=== PATIENT | female | born 1945 | race Caucasian/White ===

== ENCOUNTER → 2016-11-08 | Outpatient (CLI) | payer MEDICARE, BC ==
[~2016-11-08] MED LIST: ALENDRONATE SOD10 M1 PO; CALCIUM + D 6001 TA1 PO; CARDI-OMEGA1000 MG PO; FEMARA2.5 MG PO; FOSAMAX10 MG PO; GAS-X80 MG PO; IBUPROFEN200 M1 PO; LOW DOSE ASPIRI81 MG PO; MULTIVITAMIN FO1 CAP PO; SIMVASTATIN10 MG PO; TYLENOL 500MG500 MG PO; VITAMIN C BUFF500 MG PO; VITAMIN C500 MG PO; VITAMIN D1000 IU PO; VITAMIN D50000 I1 PO; [UNRECOGNIZED DRUG - OTHER] PO
== END ==
LOC: MC.RAD 15:32
DX: Z12.31 Encounter for screening mammogram for malignant neoplasm of breast (principal)

== ENCOUNTER → 2017-11-11 | Outpatient (CLI) | payer MEDICARE, BC | LOC: MC.RAD 13:36 | DX: Z12.31 Encounter for screening mammogram for malignant neoplasm of breast (principal); Z85.3 Personal history of malignant neoplasm of breast; Z90.12 Acquired absence of left breast and nipple ==

== ENCOUNTER 2018-06-12 06:40 | Emergency (ER) | payer MEDICARE, BC ==
[~2018-06-12] VITALS: Ht 157.5 cm; Wt 54.5 kg
[2018-06-12 06:41] VITALS: TEMP 97.6
[2018-06-12] MEDS ORDERED: NORCO 325 MG-51 TAB PO (06:48)
[2018-06-12] MEDS ORDERED: FLEXERIL 1010 MG/TAB PO (06:49)
[2018-06-12] MEDS ORDERED: XALATAN EYE DROPS OD (06:52)
[2018-06-12 07:19] LABS: BASO # 0.1 (0.0-0.2); BASO % 0.5 % (0.0-2.0); EOS # 0.1 (0.0-0.7); EOS % 1.4 % (0-4.0); GRAN # 6.8 (1.4-6.5); GRAN % 74.2 % (42.2-75.2); HEMATOCRIT 39.4 % (37.0-47.0); LYMPH # 1.6 (1.2-3.4); LYMPH % 17.7 % (20.0-51.0); MEAN CELL VOLUME 89 fl (80.0-100.0); MEAN CORPUSCULAR HEMOGLOBIN 30 pg (27.0-31.0); MEAN CORPUSCULAR HGB CONC 33 g/dl (33.0-37.0); MEAN PLATELET VOLUME 9.9 fl (7.4-10.4); MONO # 0.6 (0.1-0.6); PLATELET COUNT 245 K/mm3 (130-400); RED BLOOD COUNT 4.41 M/mm3 (4.10-5.30); REDCELL DISTRIBUTION WIDTH-CV 13.8 % (11.5-14.5)
[2018-06-12 07:33] LABS: ALANINE AMINOTRANSFERASE 37 U/L (9-52); ALBUMIN 4.5 gm/dL (3.5-5.0); ALKALINE PHOSPHATASE 55 U/L (50-136); ANION GAP 7 mmol/L (7-16); AST,SGOT 35 U/L (15-37); BILIRUBIN,TOTAL 0.6 mg/dL (0.0-1.0); BLOOD UREA NITROGEN 15 mg/dL (7-17); CALCIUM 9.9 mg/dL (8.4-10.2); CARBON DIOXIDE 27 mmol/L (22-30); CHLORIDE 102 mmol/L (98-107); CREATININE, serum 0.77 mg/dL (0.52-1.25); GLUCOSE 108 mg/dL (74-106); LIPASE 85 U/L (23-300); POTASSIUM 4.3 mmol/L (3.4-5.0); SODIUM 136 mmol/L (137-145); TOTAL PROTEIN 7.9 gm/dL (6.4-8.2)
[2018-06-12 07:35] LABS: C-REACTIVE PROTEIN < 0.5 mg/dL (0.0-0.9)
[2018-06-12 08:15] LABS: COLLECTION METHOD CLEAN CATCH
[2018-06-12 08:21] LABS: MUCOUS Present /lpf; PH 7 (5-8); SQUAMOUS EPITHELIAL None Seen /hpf; URINE APPEARANCE Clear; URINE BACTERIA None Seen /hpf; URINE BILIRUBIN Negative (NEGATIVE); URINE BLOOD Negative (NEGATIVE); URINE COLOR Yellow; URINE GLUCOSE Negative (NEGATIVE); URINE KETONE Trace (NEGATIVE); URINE LEUKOCYTE ESTERASE Negative (NEGATIVE); URINE NITRATE Negative (NEGATIVE); URINE PROTEIN(semi-quant) Negative (NEGATIVE); URINE RBC 0-2 /hpf; URINE UROBILINOGEN Negative (NEGATIVE)
[2018-06-12] MEDS ORDERED: NORCO 325 MG-7.1 TAB PO (10:34)
[2018-06-12 11:10] VITALS: BP 122/85; PULSE 77
== END 2018-06-12 11:11 | disposition home or self-care (01) ==
LOC: COL.ER 06:40
PROVIDERS: Emergency Medicine
DX: M54.9 Dorsalgia, unspecified (principal); R19.00 Intra-abdominal and pelvic swelling, mass and lump, unspecified site; Z79.82 Long term (current) use of aspirin; Z79.899 Other long term (current) drug therapy
CPT/HCPCS: J3010; J7040; Q9967

== ENCOUNTER 2018-08-22 07:44 | Day surgery (SDC) | payer MEDICARE, BC ==
[~2018-08-22] VITALS: Ht 157.5 cm; Wt 50.9 kg
[~2018-08-22 07:44] MED LIST changes: +FLEXERIL 1010 MG/TAB PO; +NORCO 325 MG-51 TAB PO; +NORCO 325 MG-7.1 TAB PO; +XALATAN EYE DROPS OD
[2018-08-22 08:17] VITALS: BP 116/87; PULSE 85; TEMP 97.3
[2018-08-22] MEDS ORDERED: NORCO 325 MG-7.1 TAB PO (08:56)
[2018-08-22] MEDS ORDERED: OMEGA-31 SGL PO (08:59)
[2018-08-22] MEDS ORDERED: BENADRYL25 M2 PO (09:01)
[2018-08-22] MEDS ORDERED: ADVIL200 MG PO (09:01)
[2018-08-22 10:05] VITALS: BP 136/45; PULSE 84; TEMP 97.7
--- NOTE | 2018-08-22 10:05 | NUR ---
Patient arrives from OR to [place] [facility] via cart. Alert and oriented x 3. Dressing at port site is clean dry and intact. Denies pain at this time. Water given and chocolate pudding.
[2018-08-22 10:20] VITALS: BP 107/69; PULSE 78
--- NOTE | 2018-08-22 10:20 | NUR ---
patient continues to be free from pain, finished eating and drinking. dressing remains clean dry and intact. call light within reach. post op VS continue.
[2018-08-22 10:35] VITALS: BP 109/65; PULSE 76
--- NOTE | 2018-08-22 10:35 | NUR ---
patient's dressing remains clean, dry and intact, VS continue.
[2018-08-22 10:50] VITALS: BP 109/73; PULSE 74; TEMP 97.2
--- NOTE | 2018-08-22 11:14 | NUR ---
Patient given discharge instructions, verbalized understanding. Patient was given port card and info sheet, verbalized understanding. Patient ambulated to elevator with steady gait, friend and this nurse at her side.
== END 2018-08-22 11:14 | disposition home or self-care (01) ==
LOC: SDCO 07:44
DX: C57.01 Malignant neoplasm of right fallopian tube (principal); Z79.899 Other long term (current) drug therapy; Z79.82 Long term (current) use of aspirin; Z85.3 Personal history of malignant neoplasm of breast; Z85.41 Personal history of malignant neoplasm of cervix uteri; Z85.43 Personal history of malignant neoplasm of ovary; M81.0 Age-related osteoporosis without current pathological fracture; H40.9 Unspecified glaucoma; Z80.42 Family history of malignant neoplasm of prostate; F17.210 Nicotine dependence, cigarettes, uncomplicated; M51.36 Other intervertebral disc degeneration, lumbar region; F41.9 Anxiety disorder, unspecified
CPT/HCPCS: C1788; J2405; J2704; J3010

== ENCOUNTER 2019-02-17 05:49 | Day surgery (SDC) | payer MEDICARE, BC ==
[~2019-02-17] VITALS: Ht 154.9 cm; Wt 49.9 kg
[2019-02-17] VITALS (7 sets, daily range): BP systolic 100–127; BP diastolic 69–90; PULSE 68–80; TEMP 97.2–98
[~2019-02-17 05:49] MED LIST changes: +ADVIL200 MG PO; +BENADRYL25 M2 PO; +OMEGA-31 SGL PO
--- NOTE | 2019-02-17 11:43 | NUR ---
PT BACK FROM OR, VSS, AFEBRILE, DRESSING DRY TO RIGHT ABD AND INTACT. PT DENIES PAIN AND NAUSEA. A/OX3. FRIEND, ADOLFO AT BEDSIDE. WILL MONITOR PROGRESSION. ARIEL
--- NOTE | 2019-02-17 11:48 | NUR ---
PT UP TO THE BATHROOM, TOLERATED ACTIVITY WELL. A/OX3. DENIES PAIN AND NAUSEA. STATES, 'FEEL BELCHY', 'TIGHT ABDOMEN'. ATE CHOCOLATE PUDDING AND DRANK DIET PEPSI. WILL CONT TO MONITOR. ARIEL
--- NOTE | 2019-02-17 11:53 | NUR ---
PT UP TO THE BATHROOM WITH ASSISSTANCE FROM HER FRIEND, ADOLFO. TOLERATED ACTIVITY WELL. DENIES PAIN, NAUSEA. ABD SURGICAL DRESSING REMAINS DRY AND INTACT. IV FLUIDS DISCONTINUED. WILL CONT TO MONITOR PROGRESS. ARIEL
--- NOTE | 2019-02-17 11:57 | NUR ---
PT A/OX3, VSS, DRESSING OVER SURGICAL SITE DRY AND INTACT. DENIES PAIN OR NAUSEA. AMBULATES SLOWLY WITHOUT DIFFICULTY. IV DC'D TO RIGHT WRIST.PT TOLERATED WELL. NO REDNESS, SWELLING, DRAINAGE NOTED. POST-OP INSTRUCTIONS GIVEN AND PT VOICES UNDERSTANDING. PT TAKEN TO FRIEND, ADOLFO'S VEHICLE AND DISCHARGED VIA WC.ARIEL
== END 2019-02-17 11:10 | disposition home or self-care (01) ==
LOC: SDCO 05:49
DX: K43.9 Ventral hernia without obstruction or gangrene (principal); J44.9 Chronic obstructive pulmonary disease, unspecified; F17.210 Nicotine dependence, cigarettes, uncomplicated; G89.29 Other chronic pain; M54.30 Sciatica, unspecified side; M19.90 Unspecified osteoarthritis, unspecified site; F41.9 Anxiety disorder, unspecified; Z90.710 Acquired absence of both cervix and uterus; Z90.10 Acquired absence of unspecified breast and nipple; Z90.49 Acquired absence of other specified parts of digestive tract; Z79.82 Long term (current) use of aspirin; Z88.8 Allergy status to other drugs, medicaments and biological substances; Z88.1 Allergy status to other antibiotic agents; Z91.048 Other nonmedicinal substance allergy status; Z85.3 Personal history of malignant neoplasm of breast; Z85.43 Personal history of malignant neoplasm of ovary; Z85.41 Personal history of malignant neoplasm of cervix uteri; Z92.21 Personal history of antineoplastic chemotherapy; Z80.42 Family history of malignant neoplasm of prostate
CPT/HCPCS: J0690; J1100; J1885; J2405; J2704; J3010; J7120

== ENCOUNTER → 2019-05-05 | Outpatient (CLI) | payer MEDICARE, BC | LOC: MC.RAD 13:43 | DX: Z12.31 Encounter for screening mammogram for malignant neoplasm of breast (principal); Z98.82 Breast implant status; Z98.890 Other specified postprocedural states ==

== ENCOUNTER → 2020-05-06 | Outpatient (CLI) | payer MEDICARE, BC | LOC: MC.RAD 10:25 | DX: Z12.31 Encounter for screening mammogram for malignant neoplasm of breast (principal) ==

== ENCOUNTER 2021-03-10 07:35 | Day surgery (SDC) | payer MEDICARE, BC ==
[2021-03-10] VITALS (9 sets, daily range): BP systolic 99–149; BP diastolic 62–103; PULSE 60–80; TEMP 98
[~2021-03-10] VITALS: Ht 157.5 cm; Wt 54.0 kg
[2021-03-10 08:57] LABS: HEMATOCRIT 40.6 % (37.0-47.0); HEMOGLOBIN 13.6 g/dl (12.5-16.0); MEAN CELL VOLUME 90 fl (80.0-100.0); MEAN CORPUSCULAR HEMOGLOBIN 30 pg (27.0-31.0); MEAN CORPUSCULAR HGB CONC 34 g/dl (33.0-37.0); MEAN PLATELET VOLUME 10.3 fl (7.4-10.4); PLATELET COUNT 223 K/mm3 (130-400); RED BLOOD COUNT 4.51 M/mm3 (4.10-5.30); REDCELL DISTRIBUTION WIDTH-CV 13.5 % (11.5-14.5)
[2021-03-10 09:09] LABS: ALBUMIN 4.6 gm/dL (3.5-5.0); BILIRUBIN,TOTAL 0.5 mg/dL (0.0-1.0); CREATININE, serum 0.95 (0.52-1.25); TOTAL PROTEIN 7.7 gm/dL (6.4-8.2)
[2021-03-10 09:11] LABS: PROTHROMBIN TIME 10.7 SECONDS (9.7-12.8)
[2021-03-10 09:14] LABS: PARTIAL THROMBOPLASTIN TIME 28.5 SECONDS (26.0-37.0)
--- NOTE | 2021-03-10 10:30 | NUR ---
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 NSR 60's on monitor. pt and friend at bs are updated on poc. lunch ordered. call light in reach.
--- NOTE | 2021-03-10 11:57 | NUR ---
Pt has been doing well during her recovery. no changes at rt radial site. pt has used bedpan with no problem. we have reviewed dc and fu instructions, and pt is eating lunch at this time.
--- NOTE | 2021-03-10 12:45 | NUR ---
We have started to deflate TR band. Pt is up and ambulatory with steady gait to bathroom. pt has developed raw skin under several of the cardiac lead stickers and has raw skin at the edges where the defib patches were placed. These areas were covered with gauze and secured wtih paper tape. The rest of cardiac lead stickers were removed to prevent any more skin issues. 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 Other than skin issue, pt is feeling good. Patient care was turned over to Andrés at this time.
--- NOTE | 2021-03-10 14:34 | NUR ---
TR band was removed by Andrés RIZVI. Pt's IV was removed, dressing was applied. Pt was escorted to exit via wheelchair.
== END 2021-03-10 14:35 | disposition home or self-care (01) ==
LOC: COL.CAR 07:35
PROVIDERS: Internal Medicine Cardiovascular Disease
DX: R06.00 Dyspnea, unspecified (principal); R94.39 Abnormal result of other cardiovascular function study; E78.5 Hyperlipidemia, unspecified; Z85.3 Personal history of malignant neoplasm of breast; Z85.44 Personal history of malignant neoplasm of other female genital organs
CPT/HCPCS: J1644; J2250; J3010

== ENCOUNTER → 2021-05-08 | Outpatient (CLI) | payer MEDICARE, BC | LOC: MC.RAD 10:30 | DX: Z12.31 Encounter for screening mammogram for malignant neoplasm of breast (principal) ==

== ENCOUNTER → 2023-07-24 | Outpatient (CLI) | payer MEDICARE, BC | LOC: MC.RAD 14:30 | DX: Z12.31 Encounter for screening mammogram for malignant neoplasm of breast (principal) ==